=== PATIENT | female | born 1985 | race Caucasian/White ===

== ENCOUNTER 2020-05-19 09:30 | Inpatient (IN) | payer OTHER ==
[~2020-05-19] VITALS: Ht 152.4 cm; Wt 2.7 kg
[~2020-05-19 09:30] MED LIST: INTEGRA CAPSUL1 EACH PO
[2020-05-23] MEDS ORDERED: IRON PO (08:11)
[2020-05-26] MEDS ORDERED: OXYC1TAB9 PO (09:02)
[2020-05-26] MEDS ORDERED: KETO10TA2 PO (09:02)
== END 2020-05-26 14:19 | disposition home or self-care (01) | DRG 785 ==
LOC: LDR 05-23 05:38 → OB/GYN 05-23 05:38 → SURH 05-26 09:30 → OB/GYN 05-26 14:19
PROVIDERS: ADMIT Obstetrics & Gynecology; ATTEND Obstetrics & Gynecology
PROC: 0UL70ZZ Occlusion of Bilateral Fallopian Tubes, Open Approach (ICD-10-PCS; 2020-05-23)
PROC: 4A1HXCZ Monitoring of Products of Conception, Cardiac Rate, External Approach (ICD-10-PCS; 2020-05-23)
PROC: 10D00Z1 Extraction of Products of Conception, Low, Open Approach (ICD-10-PCS; principal; 2020-05-23 07:00)
DX: O82 Encounter for cesarean delivery without indication (principal); Z3A.39 39 weeks gestation of pregnancy; Z37.0 Single live birth; Z30.2 Encounter for sterilization